=== PATIENT | female | born 2000 | race Two or more races ===

== ENCOUNTER 2023-07-31 17:30 | Emergency (ER) | payer SELFPAY ==
[~2023-07-31] VITALS: Ht 160 cm; Wt 43.5 kg
[2023-07-31] MEDS ORDERED: AMOX875T4 PO (21:22)
[2023-07-31] MEDS ORDERED: ACET500T58 PO (21:22)
[2023-07-31 21:37] VITALS: BP 101/52; PULSE 88; RESP 16; TEMP 98.4; O2SAT 96
[2023-07-31] MEDS: cefTRIAXone SOD 1,000 MG VL IM ONE (21:40)
== END 2023-07-31 22:06 | disposition home or self-care (01) ==
LOC: ER 17:30
DX: S60.511A Abrasion of right hand, initial encounter (principal); L03.113 Cellulitis of right upper limb; F17.210 Nicotine dependence, cigarettes, uncomplicated; F15.90 Other stimulant use, unspecified, uncomplicated; Z79.899 Other long term (current) drug therapy; W54.0XXA Bitten by dog, initial encounter; Y93.89 Activity, other specified; Y92.89 Other specified places as the place of occurrence of the external cause; Y99.8 Other external cause status
CPT/HCPCS: 73130; 96372; 99283; J0696